=== PATIENT | male | born 1965 | race Caucasian/White ===

== ENCOUNTER → 2019-04-25 12:58 | Day surgery (SDC) | payer OTHER ==
[~2019-04-25 12:58] MED LIST: Atracurium* 10 MG/ML 10 ML VIAL ONE; Bacitracin OINTMENT* 0.5% 0.5 oz TUBE ONE; Buffered Lidocaine 1% SYRIN* 1 ML/SYRINGE INTRADERM ONE; Bupivacaine 0.5% W/EPI SDV* 30 ML VIAL ONE; Dexamethasone TAB* 4 MG ONE; Dexamethasone TAB* 4 MG PO ONE; DiMENhydriNATE IV* 50 MG/ML VIAL IV PUSH PRN; Famotidine IV* 10 MG/ML 2 ML (20 mg) IV ONE; Famotidine IV* 10 MG/ML 2 ML (20 mg) ONE; HYDROmorphone INJ1* 1 MG/ML SYRINGE IV PRN; KETAMINE HCL* 50 MG/ML 10 ML VIAL ONE; Ketorolac INJ* 30 MG/ML 1 ML VIAL ONE; Lactated Ringers 1000 ML Bag* 1,000 ML IV SCH; Lidocaine 1% INJ* 10 MG/ML 30 ML SDV ONE; Lidocaine 2% PF * 5 ML VIAL ONE; Midazolam* 1 MG/ML 5 ML VIAL (5 MG) ONE; Naloxone* 0.4 MG/ML 1 ML VIAL IV PRN; Ondansetron ODT TAB* 4 MG ONE; Ondansetron ODT TAB* 4 MG PO ONE; PROCHLORPERAZINE INJ 5 MG/ML 2 ML VIAL IV PRN; Propofol* 500 MG/50 ML BTL ONE; ceFAZolin 2 GM in NS PREMIX(*) 2 GM/100 ML BAG IVPB ONE; fentaNYL* 50 MCG/ML 2 ML VIAL (100 MCG VIAL) IV PRN; fentaNYL* 50 MCG/ML 2 ML VIAL (100 MCG VIAL) ONE; oxyCODONE TAB* 5 MG TAB PO PRN
--- NOTE | 2019-04-25 18:38 | OP ---
Operative Report - Blank - Operative Report Date of Operation: 04/25/19 Note: Pre-Operative Diagnosis: umbilical hernia Post-Operative Diagnosis: umbilical hernia Procedure Performed: umbilical hernia repair with mesh Anesthesia: AMIE Surgeon: Prakash Salt Washer: CHIP Diaz Fluids Given: 1000 cc LR Estimated Blood Loss: <50 cc Drains: None Findings: as above Complications : None
[2019-04-25 19:11] VITALS: BP 121/73
--- NOTE | 2019-04-25 23:40 | OP ---
CC: Dr. Saroj Barraza * DATE OF OPERATION: 04/25/19 - SDS DATE OF : 65 SURGEON: Jam Randall MD [id number] CONSULTANT: BARBI Diaz Student. ANESTHESIOLOGIST: Dr. Lindsay. ANESTHESIA: Local MAC. PRE-OP DIAGNOSIS: Umbilical hernia. POST-OP DIAGNOSIS: Umbilical hernia. OPERATIVE PROCEDURE: Open umbilical hernia repair with mesh. ESTIMATED BLOOD LOSS: Minimal blood loss. FLUIDS: 1000 cc of crystalloid fluid given. SPECIMEN: None. DRAINS: None. COMPLICATIONS: None. DESCRIPTION OF PROCEDURE: Mr. Vallecillo is a 53-year-old gentleman who I saw yesterday in the office and recommended open umbilical hernia. He agreed with the procedure and signed consent on day of surgery. When the patient was identified in the preoperative area, he discussed that he wanted to be DNR. I stated that we would certainly do everything we can while in the operating room; but, if there should be any event, I would certainly document that he did not want any heroic measures, but I do not anticipate such needs today. After discussing this with him, the patient was satisfied and consent was signed. He was then taken to the operating room, placed on the operating table in the supine position. Preoperative antibiotics were given. Sequential devices were placed on bilateral lower extremities. Gentle sedation was given. The patient's abdomen was prepped and draped in standard surgical fashion and a time-out was performed. After injection of lidocaine, an infraumbilical incision was made, this was deepened down to the anterior fascia inferiorly. We sharply lysed the umbilical skin off of the sac. Sac was then entered and omentum was reduced. There was no small bowel in these contents. The defect was about 1 cm. We then placed a 4.3 cm bilateral mesh into the site and sutured it inferiorly and superiorly. We then sutured the lateral and medial aspect layer appropriately. We then irrigated and hemostasis was achieved. The umbilical skin was intact back down to the anterior fascia and the incision was closed in two layers with 3-0 Vicryl, followed by 4-0 Monocryl subcuticular sutures, followed by sterile dressing. [id number]/[facility] #: [id number] [facility]ITAL[facility]ry
== END | disposition home or self-care (01) ==
LOC: OR 12:58
PROVIDERS: ATTEND Surgery
DX: K42.9 Umbilical hernia without obstruction or gangrene (principal); F41.9 Anxiety disorder, unspecified
CPT/HCPCS: A9270-GY; C1781; J0690; J1885; J2250; J2704; J3010; J8540